=== PATIENT | male | born 1980 | race African-American/Black ===

== ENCOUNTER 2016-12-01 06:10 | Emergency (ER) | payer OTHER ==
[~2016-12-01] VITALS: Ht 185.4 cm; Wt 156.9 kg
[2016-12-01] MEDS ORDERED: LIDOCAINE 1%/EPI 1:100,000 20 ML VIAL. ONE (06:27)
[2016-12-01] MEDS ORDERED: CONTRAST GIVEN MC PRN (07:00)
[2016-12-01] MEDS ORDERED: LIDOCAINE 1%/EPI 1:100,000 20 ML VIAL. INJ ONE (07:00)
[2016-12-01 07:12] LABS: BASO # 0.1 x10^3/uL (0.0-0.2); BASO % 1 % (0-3); EOS % 3 % (0-3); HEMATOCRIT 49.2 % (39.0-53.0); HEMOGLOBIN 15.5 g/dL (13.0-17.5); LYMPH # 3.3 x10^3/uL (1.0-4.8); LYMPH % 29 % (24-48); MEAN CORPUSCULAR HEMOGLOBIN 27 pg (25-35); MEAN CORPUSCULAR HGB CONC 32 g/dL (31-37); MEAN CORPUSCULAR VOLUME 85 fL (79-100); MONO % 7 % (0-9); NEUT % 59 % (31-73); PLATELET COUNT 425 x10^3/uL (140-400); RED CELL DISTRIBUTION WIDTH 14.5 % (11.5-14.5); WHITE BLOOD COUNT 11.3 x10^3/uL (4.0-11.0)
[2016-12-01 07:20] LABS: CALCIUM 8.6 mg/dL (8.5-10.1); GFR 101.7; POTASSIUM 3.9 mmol/L (3.5-5.1)
--- NOTE | 2016-12-01 07:25 | PHYS DOC ---
Past Medical History Past Medical History: Asthma, Hypertension Additional Past Medical Histor: NARCOLEPSY Past Surgical History: No Surgical History Alcohol Use: Rarely Drug Use: None Adult General Chief Complaint Chief Complaint: ABSCESS HPI HPI Patient is a 36 year old male presenting to the emergency department for evaluation of drainage from a neck mass posteriorly. He says he first noticed this yesterday when he felt a sharp prick on his back and then this morning he was rubbing the back of his neck and noted that there was some clear drainage. He thinks that he may have been bit by a spider but he also says that he rubs his neck against a chair in this particular area as well. It looks like there is some skin breakdown as there might be an abrasion. He says that he is healthy overall with no diabetes or immune system problems or prior abscesses. He has no systemic fevers chills nausea vomiting. He is in no obvious distress with normal vital signs. Review of Systems Review of Systems Constitutional: Denies fever or chills [] Cardiovascular: No additional information not addressed in HPI [] GI: Denies abdominal pain, nausea, vomiting, bloody stools or diarrhea [] : Denies dysuria or hematuria [] Musculoskeletal: Denies back pain or joint pain [] Integument: + skin lesion Neurologic: Denies headache, focal weakness or sensory changes [] Current Medications Current Medications Current Medications Medications (Trade) Dose Ordered Sig/Jeanette Start Time Stop Time Status Last Admin Dose Admin Info (Do NOT chart on this entry -- for MONITORING) 1 each PRN DAILY PRN 12/01/16 07:00 12/03/16 06:59 Iohexol (Omnipaque 300 Mg/ml) 75 ml 1X ONCE 12/01/16 07:30 12/01/16 07:31 DC 12/01/16 07:28 75 ML Lidocaine/ Epinephrine (Xylocaine 1%-Epi 1:100,000) 20 ml STK-MED ONCE 12/01/16 06:27 12/01/16 06:28 DC Allergies Allergies Allergies Coded Allergies Type Severity Reaction Last Updated Verified No Known Drug Allergies 12/01/16 No Physical Exam Physical Exam Constitutional: Well developed, well nourished, no acute distress, non-toxic appearance. [] Neck: Normal range of motion, no tenderness, supple, no stridor. [] Cardiovascular:Heart rate regular rhythm, no murmur [] Lungs & Thorax: Bilateral breath sounds clear to auscultation [] Abdomen: Bowel sounds normal, soft, no tenderness, no masses, no pulsatile masses. [] Skin: Approximate 6 cm vertical by 9 cm horizontal hard skin mass on lower C- spine and upper T-spine soft tissue. There is overlying appearing abrasion in the midportion of this. There appears to be some clear fluid draining but no purulence noted. Back: No tenderness, no CVA tenderness. [] Current Patient Data Vital Signs Vital Signs Date Time Temp Pulse Resp B/P (MAP) Pulse Ox O2 Delivery O2 Flow Rate FiO2 12/01/16 06:20 97.9 90 18 95 Room Air 97.9 Lab Values Laboratory Tests Test 12/01/16 07:00 White Blood Count 11.3 x10^3/uL (4.0-11.0) H Red Blood Count 5.80 x10^6/uL (4.30-5.70) H Hemoglobin 15.5 g/dL (13.0-17.5) Hematocrit 49.2 % (39.0-53.0) Mean Corpuscular Volume 85 fL (79-100) Mean Corpuscular Hemoglobin 27 pg (25-35) Mean Corpuscular Hemoglobin Concent 32 g/dL (31-37) Red Cell Distribution Width 14.5 % (11.5-14.5) Platelet Count 425 x10^3/uL (140-400) H Neutrophils (%) (Auto) 59 % (31-73) Lymphocytes (%) (Auto) 29 % (24-48) Monocytes (%) (Auto) 7 % (0-9) Eosinophils (%) (Auto) 3 % (0-3) Basophils (%) (Auto) 1 % (0-3) Neutrophils # (Auto) 6.7 x10^3uL (1.8-7.7) Lymphocytes # (Auto) 3.3 x10^3/uL (1.0-4.8) Monocytes # (Auto) 0.8 x10^3/uL (0.0-1.1) Eosinophils # (Auto) 0.3 x10^3/uL (0.0-0.7) Basophils # (Auto) 0.1 x10^3/uL (0.0-0.2) Sodium Level 140 mmol/L (136-145) Potassium Level 3.9 mmol/L (3.5-5.1) Chloride Level 103 mmol/L (98-107) Carbon Dioxide Level 31 mmol/L (21-32) Anion Gap 6 (6-14) Blood Urea Nitrogen 10 mg/dL (8-26) Creatinine 1.0 mg/dL (0.7-1.3) Estimated GFR (Cockcroft-Gault) 101.7 BUN/Creatinine Ratio 10 (6-20) Glucose Level 138 mg/dL (70-99) H Calcium Level 8.6 mg/dL (8.5-10.1) Total Bilirubin 0.3 mg/dL (0.2-1.0) Aspartate Amino Transferase (AST) 18 U/L (15-37) Alanine Aminotransferase (ALT) 33 U/L (16-63) Alkaline Phosphatase 77 U/L (46-116) Total Protein 7.7 g/dL (6.4-8.2) Albumin 3.5 g/dL (3.4-5.0) Albumin/Globulin Ratio 0.8 (1.0-1.7) L Laboratory Tests 12/01/16 07:00 Laboratory Tests 12/01/16 07:00 EKG EKG [] Radiology/Procedures Radiology/Procedures Indication: abscess/skin lesion Procedure: The patient was positioned appropriately. Local anesthesia was injected approximately 15 mL of 1% lidocaine with epinephrine. An incision was then made over the apex of the lesion and no drainage expressed. I made an approximate 1 cm vertical and horizontal laceration and cut is deep as the length of the 11 blade. I probed the wound however no purulence was expressed. The patient tolerated the procedure well. Complications: none. Impressions: EXAM: Neck CT with intravenous contrast. HISTORY: Open wound. TECHNIQUE: Computed tomographic images of the neck were obtained following the admission of 25 cc Omnipaque 300 intravenous contrast. One or more of the following individualized dose reduction techniques were utilized for this examination: 1. Automated exposure control. 2. Adjustment of the mA and/or kV according to patient size. 3. Use of iterative reconstruction technique. COMPARISON: None. FINDINGS: There is a cutaneous defect within the posterior neck to the left of midline at the level of C3-C4. There is a tiny focus of gas within the underlying subcutaneous fat. There is skin thickening in this region and slight reticulation of the subcutaneous fat. No drainable fluid collection is seen. No mass is seen. The visualized portions of the brain are unremarkable. The orbits are unremarkable. There is opacification of the right aspect of the frontal sinus and there are small bilateral maxillary sinus mucous retention cyst. The mastoid air cells are clear. No calvarial lesion is seen. The parotid and submental glands and thyroid gland are unremarkable. No pathologically enlarged lymph node is seen. Lung apices are unremarkable. There are degenerative changes within the cervical spine. There is no severe foraminal or central canal stenosis. There is vacuum phenomena involving the right glenohumeral joint. IMPRESSION: Small cutaneous defect within the posterior neck to the left of midline at the level of C3-C4, with associated skin thickening and subcutaneous fatty stranding and tiny focus of subcutaneous gas. This may be due to recent penetrating injury, cellulitis or recent lesion debridement. There is no evidence of abscess. DICTATED and SIGNED BY: SARTHAK BREEN MD DATE: 12/01/16 0746 Course & Med Decision Making Course & Med Decision Making I am not sure if this is a very deep abscess that I cannot get to or if it is not an abscess at all may be a tumor or kerion. Patient will get a CT to evaluate this lesion further. CT as above. There is no emergent need for excision or further surgery at this time. He will likely need biopsy in surgical incision so I spoke to the surgeon c application developer Dr. Steele and he agreed to see patient later next week and to start him on an antibiotic for now. Patient was told that his blood pressure was elevated here and he likely needs follow-up for this but will not start him on medication now as it is just a one-time reading. Patient aware and agreeable with plan for discharge and verbalized understanding of the need for short-term follow-up and strict ER return precautions discussed including worsening pain fevers vomiting or other general concerns. Dragon Disclaimer Dragon Disclaimer This electronic medical record was generated, in whole or in part, using a voice recognition dictation system. Departure Departure Impression: Primary Impression: Skin lesion of back Disposition: HOME, SELF-CARE Condition: GOOD Referrals: SONIA STEELE MD Patient Instructions: Excision of Skin Lesions Additional Instructions: TAKE 400MG OF IBUPROFEN EVERY 6 HOURS AND THE NORCO FOR BREAKTHROUGH PAIN. FOLLOW WITH THE SURGEON. CALL ON SATURDAY TO GET FOLLOW UP. THANK YOU! Scripts Hydrocodone/Apap 5-325 (NORCO 5-325 TABLET) 1 Each Tablet 1 TAB PO PRN Q6HRS Y for PAIN, #30 TAB 0 Refills Prov: JENNYFER HALEY DO 12/01/16 Sulfamethoxazole/Trimethoprim (BACTRIM 400-80 MG TABLET) 1 Each Tablet 1 TAB PO BID, #14 TAB Prov: JENNYFER HALEY DO 12/01/16 JENNYFER HALEY DO December 01, 2016 07:25
[2016-12-01 07:26] LABS: ALBUMIN 3.5 g/dL (3.4-5.0); ALBUMIN/GLOBULIN RATIO 0.8 (1.0-1.7); TOTAL BILIRUBIN 0.3 mg/dL (0.2-1.0); TOTAL PROTEIN 7.7 g/dL (6.4-8.2)
[2016-12-01] MEDS ORDERED: IOHEXOL 300 MG/ML 75 ML VIAL IV ONE (07:30)
--- NOTE | 2016-12-01 07:53 | RAD ---
EXAM: Neck CT with intravenous contrast. HISTORY: Open wound. TECHNIQUE: Computed tomographic images of the neck were obtained following the admission of 25 cc Omnipaque 300 intravenous contrast. One or more of the following individualized dose reduction techniques were utilized for this examination: 1. Automated exposure control. 2. Adjustment of the mA and/or kV according to patient size. 3. Use of iterative reconstruction technique. COMPARISON: None. FINDINGS: There is a cutaneous defect within the posterior neck to the left of midline at the level of C3-C4. There is a tiny focus of gas within the underlying subcutaneous fat. There is skin thickening in this region and slight reticulation of the subcutaneous fat. No drainable fluid collection is seen. No mass is seen. The visualized portions of the brain are unremarkable. The orbits are unremarkable. There is opacification of the right aspect of the frontal sinus and there are small bilateral maxillary sinus mucous retention cyst. The mastoid air cells are clear. No calvarial lesion is seen. The parotid and submental glands and thyroid gland are unremarkable. No pathologically enlarged lymph node is seen. Lung apices are unremarkable. There are degenerative changes within the cervical spine. There is no severe foraminal or central canal stenosis. There is vacuum phenomena involving the right glenohumeral joint. IMPRESSION: Small cutaneous defect within the posterior neck to the left of midline at the level of C3-C4, with associated skin thickening and subcutaneous fatty stranding and tiny focus of subcutaneous gas. This may be due to recent penetrating injury, cellulitis or recent lesion debridement. There is no evidence of abscess.
[2016-12-01] MEDS ORDERED: HYDR-971 PO (08:13)
[2016-12-01] MEDS ORDERED: SULF1TAB23 PO (08:13)
[2016-12-01 08:24] VITALS: BP 168/82
== END 2016-12-01 08:25 | disposition home or self-care (01) ==
LOC: ER 06:10
DX: L98.8 Other specified disorders of the skin and subcutaneous tissue (principal); R22.1 Localized swelling, mass and lump, neck; I10 Essential (primary) hypertension; J45.909 Unspecified asthma, uncomplicated; G47.419 Narcolepsy without cataplexy
CPT/HCPCS: 10060; 36415; 70491; 80053; 85027; 99285; J3490; Q9967